=== PATIENT | female | born 1985 | race Caucasian/White ===

== ENCOUNTER 2017-12-24 10:05 | Emergency (ER) | payer SELFPAY ==
[~2017-12-24] VITALS: Ht 157.5 cm; Wt 67.0 kg
[2017-12-24 10:06] VITALS: BP 130/60; PULSE 87; RESP 18; TEMP 99.1; O2SAT 100
[2017-12-24 11:42] LABS: HEMATOCRIT 36.3 % (35.0-46.0); HEMOGLOBIN 12.6 GM/DL (11.6-15.3); MEAN CELL VOLUME 93.9 FL (80.0-100.0); MEAN CORPUSCULAR HEMOGLOBIN 32.7 PG (27.0-34.0); MEAN CORPUSCULAR HGB CONC 34.8 % (32.0-36.0); MEAN PLATELET VOLUME 7.9 FL (7.0-11.0); PLATELET COUNT 293 TH/MM3 (150-450); RED BLOOD COUNT 3.86 MIL/MM3 (4.00-5.30); RED CELL DISTRIBUTION WIDTH 12.8 % (11.6-17.2); WHITE BLOOD COUNT 7.8 TH/MM3 (4.0-11.0)
[2017-12-24 11:54] LABS: BILIRUBIN, URINE NEG (NEG); BLOOD, URINE SMALL (NEG); GLUCOSE,URINE NEG (NEG); KETONE, URINE NEG (NEG); MUCUS URINE FEW /lpf (OCC); NITRITE,URINE NEG (NEG); SQUAMOUS EPITHELIAL CELL URINE <1 /hpf (0-5); URINE COLOR LIGHT-YELLOW (YELLW/STRAW); URINE LEUKOCYTE ESTERASE NEG (NEG)
--- NOTE | 2017-12-24 13:00 | PD ---
HPI Chief Complaint: Related Problem Time Seen by Provider: 11:20 Travel History International Travel<30 days: No Contact w/Intl Traveler<30days: No Traveled to known affect area: No History of Present Illness HPI 32-year-old female that presents to the ED for evaluation of bleeding and . Per patient she is about 11 weeks . Per patient she had a Pap smear and ultrasound done by her doctor yesterday for her first OB visit. This is her fourth . She's had 3 vaginal deliveries and no miscarriages. She's never had this bleeding before she was concerned. She was told that for the past and she could have some bleeding she was concerned because today she had more clots than actual blood. She did have intercourse yesterday night. She denies any abdominal pain. She does not know her blood type. No other medical issues. She does not feel the baby move but she is also to be done for it. Denies any vaginal discharge other than the blood. Per patient he small amounts and only when she wipes. PFSH Past Medical History Medical History: Denies Significant Hx ?: Para: 2 Past Surgical History Surgical History: No Previous Surgery Social History Alcohol Use: No Tobacco Use: No Substance Use: No Allergies-Medications (Allergen,Severity, Reaction): Coded Allergies: No Known Allergies (Verified Adverse Reaction, Unknown, 12/24/17) Reported Meds & Prescriptions Reported Meds & Active Scripts Active No Active Prescriptions or Reported Medications Review of Systems Except as stated in HPI: all other systems reviewed are Neg Physical Exam Narrative GENERAL: SKIN: Warm and dry. HEAD: Atraumatic. Normocephalic. EYES: Pupils equal and round. No scleral icterus. No injection or drainage. ENT: No nasal bleeding or discharge. Mucous membranes pink and moist. Tongue is midline. No uvula deviation. NECK: Trachea midline. No JVD. CARDIOVASCULAR: Regular rate and rhythm. No murmurs, S3, S4. RESPIRATORY: No accessory muscle use. Clear to auscultation. Breath sounds equal bilaterally. GASTROINTESTINAL: Abdomen soft, non-tender, nondistended. Hepatic and splenic margins not palpable. Pelvic exam revealed no sign of masses or deformities to the outside of the vaginal. Mild bleeding noted from the clitoris but no obvious remedies. No obvious fetus product. No lymphadenopathy noted. MUSCULOSKELETAL: Extremities without clubbing, cyanosis, or edema. No obvious deformities. Full range of motion of the upper and lower extremities bilaterally. 2+ pulses bilaterally. NEUROLOGICAL: Awake and alert. No obvious cranial nerve deficits. Motor grossly within normal limits. Five out of 5 muscle strength in the arms and legs. Normal speech. PSYCHIATRIC: Appropriate mood and affect; insight and judgment normal. Data Data Last Documented VS Vital Signs Date Time Temp Pulse Resp B/P (MAP) Pulse Ox O2 Delivery O2 Flow Rate FiO2 12/24/17 10:06 99.1 87 18 130/60 (83) 100 Room Air Orders Orders Cbc No Diff, Includes Plts (12/24/17 10:54) Type And Screen (12/24/17 10:54) Beta Hcg (Quant/Titer) (12/24/17 10:54) Ed Urine Pregnancytest Poc (12/24/17 10:55) Urinalysis - C+S If Indicated (12/24/17 10:55) Ed Poc Ultrasound (12/24/17 ) Ed Discharge Order (12/24/17 12:53) Labs Laboratory Tests Test 12/24/17 11:00 12/24/17 11:30 White Blood Count 7.8 TH/MM3 Red Blood Count 3.86 MIL/MM3 Hemoglobin 12.6 GM/DL Hematocrit 36.3 % Mean Corpuscular Volume 93.9 FL Mean Corpuscular Hemoglobin 32.7 PG Mean Corpuscular Hemoglobin Concent 34.8 % Red Cell Distribution Width 12.8 % Platelet Count 293 TH/MM3 Mean Platelet Volume 7.9 FL Human Chorionic Gonadotropin, Quant [id number] MIU/ML Urine Color LIGHT-YELLOW Urine Turbidity CLEAR Urine pH 7.0 Urine Specific [place] 1.011 Urine Protein NEG mg/dL Urine Glucose (UA) NEG mg/dL Urine Ketones NEG mg/dL Urine Occult Blood SMALL Urine Nitrite NEG Urine Bilirubin NEG Urine Urobilinogen LESS THAN 2.0 MG/DL Urine Leukocyte Esterase NEG Urine RBC 7 /hpf Urine WBC 1 /hpf Urine Squamous Epithelial Cells <1 /hpf Urine Mucus FEW /lpf Microscopic Urinalysis Comment CULT NOT INDICATED MDM Medical Decision Making Medical Screen Exam Complete: Yes Emergency Medical Condition: Yes Medical Record Reviewed: Yes Interpretation(s) CBC & BMP Diagram 12/24/17 11:00 beta elevated UA shows blood Differential Diagnosis Vaginal bleeding versus bleeding versus miscarriage versus normal versus postprocedure bleeding Narrative Course 32-year-old female that presents to the ED for evaluation of vaginal bleeding during . Patient was properly examined and was found to have signs and symptoms consistent with vaginal bleeding. My attending perform an ultrasound at bedside and did show IUP with fetus moving. Heart rate could not be obtained per my attendings secondary to the fetus moving. My attending agrees the patient can be discharged with follow-up with [facility] this week. Patient agrees with this plan. Follow with PCP. See ED worsening symptoms. Diagnosis Primary Impression: Vaginal bleeding affecting early Patient Instructions: General Instructions Additional Instructions: Tylenol for pain as needed. Follow up with [facility] this week. See ED for any worsening symptoms. Med/Other Pt SpecificInfo: No Change to Meds Scripts No Active Prescriptions or Reported Meds Disposition: 01 DISCHARGE HOME Condition: Stable Dieudonne Singh Dec 24, 2017 13:00
[2017-12-24 13:15] VITALS: BP 113/58
--- NOTE | 2017-12-24 14:03 | PD ---
Data Data Last Documented VS Vital Signs Date Time Temp Pulse Resp B/P (MAP) Pulse Ox O2 Delivery O2 Flow Rate FiO2 12/24/17 13:15 83 16 113/58 (76) 99 12/24/17 10:06 99.1 Room Air Orders Orders Cbc No Diff, Includes Plts (12/24/17 10:54) Type And Screen (12/24/17 10:54) Beta Hcg (Quant/Titer) (12/24/17 10:54) Ed Urine Pregnancytest Poc (12/24/17 10:55) Urinalysis - C+S If Indicated (12/24/17 10:55) Ed Poc Ultrasound (12/24/17 ) Ed Discharge Order (12/24/17 12:53) Labs Laboratory Tests Test 12/24/17 11:00 12/24/17 11:30 White Blood Count 7.8 TH/MM3 Red Blood Count 3.86 MIL/MM3 Hemoglobin 12.6 GM/DL Hematocrit 36.3 % Mean Corpuscular Volume 93.9 FL Mean Corpuscular Hemoglobin 32.7 PG Mean Corpuscular Hemoglobin Concent 34.8 % Red Cell Distribution Width 12.8 % Platelet Count 293 TH/MM3 Mean Platelet Volume 7.9 FL Human Chorionic Gonadotropin, Quant [id number] MIU/ML Urine Color LIGHT-YELLOW Urine Turbidity CLEAR Urine pH 7.0 Urine Specific [place] 1.011 Urine Protein NEG mg/dL Urine Glucose (UA) NEG mg/dL Urine Ketones NEG mg/dL Urine Occult Blood SMALL Urine Nitrite NEG Urine Bilirubin NEG Urine Urobilinogen LESS THAN 2.0 MG/DL Urine Leukocyte Esterase NEG Urine RBC 7 /hpf Urine WBC 1 /hpf Urine Squamous Epithelial Cells <1 /hpf Urine Mucus FEW /lpf Microscopic Urinalysis Comment CULT NOT INDICATED MDM Supervised Visit with CONNIE: Yes Narrative Course The history, exam, and medical decision-making in the associated midlevel provider note were completed with my assistance. I reviewed and agree with the findings presented. I attest that I had a [id number] encounter with the patient on the same day, and personally performed and documented my assessment and findings in the medical record. *My assessment and Findings: This is a 32-year-old female who is 11 weeks who presents to the emergency department reporting vaginal bleeding. She had a Pap smear and then intercourse last evening. Bedside ultrasound is reassuring with a vigorous fetus. Patient was counseled to follow up with her outpatient physician. Blood type is Rh+. This reflects a threatened miscarriage. Procedures Procedure Narrative Pelvic ultrasound: Vigorous single intrauterine fetus appreciated, heart rate is visualized but unable to capture rate due to movement. Diagnosis Primary Impression: Vaginal bleeding affecting early Patient Instructions: General Instructions Departure Forms: Tests/Procedures Additional Instruction: Tylenol for pain as needed. Follow up with [facility] SU[facility] COUNSELOR this week. See ED for any worsening symptoms. Scripts No Active Prescriptions or Reported Meds Disposition: 01 DISCHARGE HOME Condition: Stable Anabel Del Rio MD Dec 24, 2017 14:03
== END 2017-12-24 13:16 | disposition home or self-care (01) ==
LOC: NEPD 10:05
DX: O46.91 Antepartum hemorrhage, unspecified, first trimester (principal); Z3A.11 11 weeks gestation of pregnancy; Z34.91 Encounter for supervision of normal pregnancy, unspecified, first trimester
CPT/HCPCS: 81001; 84702; 84703; 85027; 86850; 86900; 86901